=== PATIENT | male | born 1960 | race Caucasian/White ===

== ENCOUNTER 2017-04-01 21:01 | Emergency (ER) | payer BC, OTHER ==
[2017-04-01] MEDS ORDERED: Ondansetron 4 MG/2 ML SDV IVPUSH ONE (21:16)
[2017-04-01] MEDS ORDERED: Morphine 10 MG/ML Syringe IVPUSH ONE ×3 (21:16→22:40)
[2017-04-01] MEDS ORDERED: Sodium Chloride 0.9% 10 ML Syringe FLUSH PRN (21:23)
[2017-04-01] MEDS ORDERED: Morphine 10 MG/ML Syringe ONE (21:47)
--- NOTE | 2017-04-01 22:45 | EDM.PDOC ---
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 [place] instant pain just below right knee. Denies other injuries. No other complaints other than pain below right knee. Has Osteogenesis Imperfecta but does not recall specific type ('"one of the middle ones") History of frequent fractures as child, less frequent in adulthood. Last fracture was around 3 yrs ago. Denies any other chronic medical conditions other than GERD and HTN. right leg Pain Score (Numeric/FACES): 9 - Related Data Allergies Allergy/AdvReac Type Severity Reaction Status Date / Time No Known Allergies Allergy Verified 04/01/17 21:17 Home Meds: Home Meds Celecoxib 200 mg PO DAILY 04/01/17 [History] Fish Oil/[place]-3 Fatty Acids [Fish Oil] 1 each PO DAILY 04/01/17 [History] Magnesium 200 mg PO DAILY 04/01/17 [History] Multivitamin [Daily Multiple Vitamin] 1 tab PO DAILY 04/01/17 [History] Past Medical History HEENT History: Reports: Impaired Vision Other HEENT History: wears glasses Cardiovascular History: Reports: Hypertension Gastrointestinal History: Reports: GERD Musculoskeletal History: Reports: Other (See Below) Other Musculoskeletal History: scoliosis, osteogenesis imperfecta - Past Surgical History GI Surgical History: Reports: Appendectomy Musculoskeletal Surgical History: Reports: Other (See Below) Other Musculoskeletal Surgeries/Procedures:: multiple fractures over the histor , unsure of hardware in RLE Social & Family History - Tobacco Use Smoking Status *Q: Never Smoker Second Hand Smoke Exposure: No - Caffeine Use Caffeine Use: Reports: Coffee - Recreational Drug Use Recreational Drug Use: No ED ROS GENERAL - Review of Systems Review Of Systems: ROS reveals no pertinent complaints other than HPI. Skin: Reports: No Symptoms Neurological: Reports: No Symptoms ED EXAM, GENERAL - Physical Exam Exam: See Below Exam Limited By: No Limitations General Appearance: Alert, WD/WN, Moderate Distress Eye Exam: Bilateral Eye: EOMI, PERRL Ears: Normal External Exam Nose: No: No Blood, Nasal Drainage Throat/Mouth: Normal Inspection, Normal Voice, No Airway Compromise Head: Atraumatic, Normocephalic Neck: Normal Inspection, Supple, Non-Tender, Full Range of Motion Respiratory/Chest: No Respiratory Distress, Lungs Clear, Normal Breath Sounds, No Accessory Muscle Use Cardiovascular: Normal Peripheral Pulses, Regular Rate, Rhythm, No Murmur Peripheral Pulses: 2+: Radial (L), Radial (R), Dorsalis Pedis (L), Dorsalis Pedis (R) GI/Abdominal: Normal Bowel Sounds, Soft, Non-Tender Back Exam: No: Muscle Spasm, Paraspinal Tenderness Extremities: No Pedal Edema, Normal Capillary Refill, Other (Tender with palpation of leg just below knee, more so laterally than medially. No signficant swelling. Skin intact. No discoloration. NVI distal to injury. Limbs upper/lower otherwise unremarkable for acute injury) Neurological: Alert, Oriented, Normal Cognition, No Motor/Sensory Deficits, Sensory/Motor Deficit Psychiatric: Normal Affect Skin Exam: Warm, Dry, Intact, Normal Color Course - Vital Signs Last Recorded V/S: Last Vital Signs Temp 37.2 C 04/01/17 21:05 Pulse 95 04/01/17 21:05 Resp 17 04/01/17 21:05 BP 166/104 H 04/01/17 21:05 Pulse Ox 97 04/01/17 21:05 - Orders/Labs/Meds Orders: Active Orders 24 hr Category Date Time Status Knee 1V or 2V Rt [CR] Stat Exams 04/01/17 21:23 Taken Knee wo Cont Rt [CT] Stat Exams 04/01/17 22:35 Taken Tibia Fibula Rt [CR] Stat Exams 04/01/17 21:24 Taken Sodium Chloride 0.9% [Saline Flush] Med 04/01/17 21:23 Active 10 ml FLUSH ASDIRECTED PRN Saline Lock Insert [OM.PC] Stat Oth 04/01/17 21:23 Ordered Medication Orders Sodium Chloride (Saline Flush) 10 ml FLUSH ASDIRECTED PRN PRN Reason: Keep Vein Open Last Admin: 04/01/17 22:46 Dose: 10 ml Meds: Medications Generic Name Dose Route Start Last Admin Trade Name Freq PRN Reason Stop Dose Admin Sodium Chloride 10 ml 04/01/17 21:23 04/01/17 22:46 Saline Flush FLUSH 10 ml ASDIRECTED PRN Administration Keep Vein Open Discontinued Medications Generic Name Dose Route Start Last Admin Trade Name Yaneth PRN Reason Stop Dose Admin Morphine Sulfate 5 mg 04/01/17 21:16 04/01/17 21:26 Morphine IVPUSH 04/01/17 21:17 5 mg ONETIME ONE Administration Morphine Sulfate 5 mg 04/01/17 21:45 04/01/17 21:48 Morphine IVPUSH 04/01/17 21:46 5 mg ONETIME ONE Administration Morphine Sulfate Confirm 04/01/17 21:47 04/01/17 21:58 Morphine Administered 04/01/17 21:48 Not Given Dose 10 mg .ROUTE .STK-MED ONE Morphine Sulfate 5 mg 04/01/17 22:40 04/01/17 22:43 Morphine IVPUSH 04/01/17 22:41 5 mg ONETIME ONE Administration Ondansetron HCl 4 mg 04/01/17 21:16 04/01/17 21:25 Zofran IVPUSH 04/01/17 21:17 4 mg ONETIME ONE Administration - Radiology Interpretation Free Text/Narrative:: Knee xray confirmed fracture of tibia. CT: comminuted tibial plateau fracture - Re-Assessments/Exams Free Text/Narrative Re-Assessment/Exam: 04/01/17 22:48 Discussed patient with from [facility] and he requested CT of knee after viewing films. Patient more comfortable after receiving MS. 04/02/17 00:44 reviewed xray and said that patient too complex of fracture to go to [facility]. Recommended [facility] or [facility]. Call placed to [facility]. Discussed patient with /ortho. Patient accepted for transfer. Will be placed inpatient at their facility until he can be evaluated by Ortho trauma surgeon later this weekend. Patient placed in immobilizer prior to transfer. Declined ambulance transfer. Will ride in brother's car. To present to ER for admission. Departure - Departure Time of Disposition: 00:46 Disposition: DC/Tfer to Acute Hospital 02 Condition: good Clinical Impression: Tibial plateau fracture, right Qualifiers: Encounter type: initial encounter Fracture type: closed Qualified Code(s): S82.141A - Displaced bicondylar fracture of right tibia, initial encounter for closed fracture - Discharge Information Forms: ED Department Discharge Additional Instructions: Drive straight to [facility] in [place] and present to the ER. They know you are coming and will help in admitting you to [facility] for further care. - My Orders Last 24 Hours: My Active Orders 04/01/17 21:23 Knee 1V or 2V Rt [CR] Stat Sodium Chloride 0.9% [Saline Flush] 10 ml FLUSH ASDIRECTED PRN Saline Lock Insert [OM.PC] Stat 04/01/17 21:24 Tibia Fibula Rt [CR] Stat 04/01/17 22:35 Knee wo Cont Rt [CT] Stat - Assessment/Plan Last 24 Hours: My Active Orders 04/01/17 21:23 Knee 1V or 2V Rt [CR] Stat Sodium Chloride 0.9% [Saline Flush] 10 ml FLUSH ASDIRECTED PRN Saline Lock Insert [OM.PC] Stat 04/01/17 21:24 Tibia Fibula Rt [CR] Stat 04/01/17 22:35 Knee wo Cont Rt [CT] Stat
[2017-04-02] MEDS ORDERED: Morphine 4 MG/ML Syringe IVPUSH ONE (00:50)
[2017-04-02 03:39] VITALS: BP 164/97
== END 2017-04-02 01:44 ==
LOC: LL.ED 21:01
DX: S82.141A Displaced bicondylar fracture of right tibia, initial encounter for closed fracture (principal); H54.7 Unspecified visual loss; I10 Essential (primary) hypertension; K21.9 Gastro-esophageal reflux disease without esophagitis; Z90.49 Acquired absence of other specified parts of digestive tract; Z79.899 Other long term (current) drug therapy; W17.89XA Other fall from one level to another, initial encounter
CPT/HCPCS: 73560; 73590; 73700; 96374; 96375; 96376; 99285; J2270; J2405; J7050